=== PATIENT | female | born 1990 | race Two or more races ===

== ENCOUNTER 2023-07-11 01:18 | Emergency (ER) | payer SELFPAY ==
[~2023-07-11] VITALS: Ht 160 cm; Wt 69.2 kg
[2023-07-11 01:31] VITALS: O2SAT 100
[2023-07-11] MEDS ORDERED: IBUPROFEN 600MG TABLET PO ONE (03:30)
[2023-07-11] MEDS ORDERED: IBUP-2029 MT (05:26)
[2023-07-11 05:59] VITALS: BP 124/89; PULSE 96; RESP 12; TEMP 98
== END 2023-07-11 06:00 | disposition home or self-care (01) ==
LOC: ER 01:18
DX: S63.616A Unspecified sprain of right little finger, initial encounter (principal); S09.90XA Unspecified injury of head, initial encounter; Y04.0XXA Assault by unarmed brawl or fight, initial encounter; Y93.89 Activity, other specified; Y92.89 Other specified places as the place of occurrence of the external cause; Y99.8 Other external cause status
CPT/HCPCS: 71045; 73130; 81025; 99284